=== PATIENT | female | born 2000 | race Caucasian/White ===

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

== ENCOUNTER 2023-04-15 14:31 | Emergency (ER) | payer MEDICAID, SELFPAY ==
[2023-04-15 14:32] VITALS: BP 114/57; PULSE 80; RESP 16; TEMP 36.6; O2SAT 100; BMI 21.9
--- NOTE | 2023-04-15 14:45 | ED.VIS.FEGU ---
HPI <ALIRIO Frazier - Last Filed: 04/15/23 15:34> HPI - Female History of Present Illness Chief Complaint: Narrative Narrative: Patient is a 22-year-old female that is a 3 para 3 who is concerned that she is for the fourth time. Patient states she currently does not have an TRADE SALES ASSISTANT. Patient denies any lower abdominal pain, patient denies any urinary frequency. Patient states that she is been having intermittent nausea in the morning, is also felt some breast soreness. She is here for evaluation. PFSH <ALIRIO Frazier - Last Filed: 04/15/23 15:34> [facility] Home Medications Prenatabs FA 1 tab PO DAILY nutrition 10/11/17 [History Last Taken Unknown] cephalexin 500 mg capsule 500 mg PO TID 7 days #21 caps 04/15/23 [Rx Last Taken Unknown] Allergy/AdvReac Type Severity Reaction Status Date / Time No Known Allergies Allergy Verified 04/15/23 14:33 Social History Smoking Status: Light Smoker (<10/day) ROS <ALIRIO Frazier - Last Filed: 04/15/23 15:34> ROS ED ROS Narrative Constitutional: Negative for fever, chills, weight loss, weakness Eyes: Negative for vision loss, vision change, double vision ENT: Negative for any sore throat, ear pain, congestion Cardiovascular: Negative for any chest pain, tightness, palpitations Respiratory: Negative for any cough, sputum production, hemoptysis, dyspnea, dyspnea on exertion, orthopnea Gastrointestinal: Negative for any abdominal pain, vomiting, diarrhea, constipation, blood in stool, blood in vomit. Positive for nausea : Negative for any urinary frequency, dysuria, retention, blood in urine Muscle skeletal: Negative for any myalgias, arthralgias, neck pain, back pain Neurological: Negative for any headache, syncope, paresthesias, dizziness Skin: Negative for any rashes, lumps, itching, abrasions, lacerations. Positive breast soreness Psychiatric: Negative for any depression, anxiety, stress, suicidal ideation, homicidal ideation Hematologic: Negative for any easy bruising, excessive bruising, easy bleeding Allergies: Negative for any eczema, hives, rash EXAM <ALIRIO Frazier - Last Filed: 04/15/23 15:34> Physical Exam Narrative Exam Narrative: Vital signs reviewed. HEET: Head normocephalic atraumatic, TMs clear bilaterally. Posterior pharynx is clear, moist mucous membranes. Nares clear bilaterally. Neck: Supple with no lymphadenopathy or tenderness. No signs of meningismus. Cardiac: Regular rate and rhythm no murmurs gallops or rubs, equal peripheral pulses bilaterally. Respiratory: Lungs clear to auscultation bilaterally. No chest tenderness. Abdomen: Soft, nontender, nondistended. No abdominal bruit or pulsatile masses. No hepatosplenomegaly Extremities: No peripheral edema, no signs of gross trauma or deformity. Active full range of motion of all extremities. Neuro: Cranial nerves II through XII intact, no focal neurological deficits. Skin: Clean dry and intact with no rash, purpura, petechiae, vesicles or pustules. Backs/flank: No CVA tenderness, no midline spinal tenderness, no deformity. Psych: Normal mood and affect. No SI, HI or acute psychosis. Const Vital Signs: 04/15/23 14:32 Temperature 97.9 F Temperature Source Temporal Pulse Rate 80 Respiratory Rate 16 Blood Pressure 114/57 L Blood Pressure Mean 76 Pulse Ox 100 Oxygen Delivery Method Room Air <Dr. Eliezer Cabrera DO - Last Filed: 04/15/23 16:21> Physical Exam Const Vital Signs: 04/15/23 14:32 Temperature 97.9 F Temperature Source Temporal Pulse Rate 80 Respiratory Rate 16 Blood Pressure 114/57 L Blood Pressure Mean 76 Pulse Ox 100 Oxygen Delivery Method Room Air [facility] <ALIRIO Frazier - Last Filed: 04/15/23 15:34> [facility] Lab Data Labs: Laboratory Results - last 24 hr 04/15/23 14:50 Urine Color Yellow Urine Clarity Clear Urine pH 6.5 Ur Specific Godwin 1.020 Urine Protein 15 H Urine Glucose (UA) Normal Urine Ketones Negative Urine Occult Blood 10 H Urine Nitrite Positive H Urine Bilirubin Negative Urine Urobilinogen 1 H Ur Leukocyte Esterase 25 H Urine RBC 0 SEEN Urine WBC 0-5 SEEN Ur Squamous Epith Cells 0-5 SEEN Urine Bacteria 2+ Urine Mucus 0 SEEN Urine Test Positive H Treatment and Re-Evaluation Narrative: Patient appears generally well, patient appears nontoxic, vital signs are stable. Presenting to the emergency department for concern of possible . Physical examination is unremarkable. Differential diagnosis includes positive , dysmenorrhea, ectopic . However patient has no pain, making ectopic low of my suspicion. Patient received a urine . Patient did asked to see how far along she was however I believe the patient can follow-up with her TRADE SALES ASSISTANT for this. Patient's urinalysis was positive for , patient also was positive for UTI, 2+ bacteria 25 leukocytes, positive nitrates. This was sent for culture, patient placed on Keflex 3 times a day for 7 days. I will give the patient's TRADE SALES ASSISTANT follow-up, she is instructed return for any worsening symptoms. At this time, patient has no abdominal pain, vaginal bleeding. Patient will follow-up outpatient. <Dr. Eliezer Cabrera, DO - Last Filed: 04/15/23 16:21> [facility] Narrative Medical decision making narrative: Patient appears generally well, patient appears nontoxic, vital signs are stable. Presenting to the emergency department for concern of possible . Physical examination is unremarkable. Differential diagnosis includes positive , dysmenorrhea, ectopic . However patient has no pain, making ectopic low of my suspicion. Patient received a urine . Patient did asked to see how far along she was however I believe the patient can follow-up with her TRADE SALES ASSISTANT for this. Patient's urinalysis was positive for , patient also was positive for UTI, 2+ bacteria 25 leukocytes, positive nitrates. This was sent for culture, patient placed on Keflex 3 times a day for 7 days. I will give the patient's TRADE SALES ASSISTANT follow-up, she is instructed return for any worsening symptoms. At this time, patient has no abdominal pain, vaginal bleeding. Patient will follow-up outpatient. Patient presenting with concerns for . She has not checked as an outpatient. No abdominal pain. No vaginal bleeding or loss of fluid. She does not have current OB follow-up. She has not had any care. hCG positive today. UTI consistent with possible early infection she will be treated for this with Keflex. She is given TRADE SALES ASSISTANT follow-up. Return precautions discussed. Lab Data Labs: Laboratory Results - last 24 hr 04/15/23 14:50 Urine Color Yellow Urine Clarity Clear Urine pH 6.5 Ur Specific Godwin 1.020 Urine Protein 15 H Urine Glucose (UA) Normal Urine Ketones Negative Urine Occult Blood 10 H Urine Nitrite Positive H Urine Bilirubin Negative Urine Urobilinogen 1 H Ur Leukocyte Esterase 25 H Urine RBC 0 SEEN Urine WBC 0-5 SEEN Ur Squamous Epith Cells 0-5 SEEN Urine Bacteria 2+ Urine Mucus 0 SEEN Urine Test Positive H Discharge Plan Triage Chief Complaint: ED Midlevel Provider: Miguel Angel Ann ED Provider: Eliezer Cabrera Dx/Rx/DC Orders Clinical Impression: , UTI (urinary tract infection) during Instructions: Urinary Tract Infections in Women, ED Prescriptions: New cephalexin 500 mg capsule 500 mg PO TID 7 Days Qty: 21 0RF No Action Prenatabs FA 1 tab PO DAILY Primary Care Provider: Care Physician,No Primary Referrals: Jessica Ko MD [Non-Staff] - Marisol Farley DO [Med Staff - Active Staff] - Activity Restrictions/Additional Instructions: Take the antibiotics until finished. You need to follow-up with TRADE SALES ASSISTANT Disposition Disposition: Home, Self Care Discharge Date/Time: 04/15/23 15:50
[2023-04-15 14:59] LABS: Mucous, Urine 0 SEEN /hpf (<or=2+); Red Blood Cells-Urine 0 SEEN /hpf (0-5)
[2023-04-15 15:16] LABS: Color, Urine Yellow (Yellow); Glucose, Dipstick Normal (Normal); Ketone-Dipstick Negative (Negative); Leukocyte Esterase-Dipstick 25 /ul (Negative); Nitrite-Dipstick Positive (Negative); Occult Blood-Urine 10 /ul (Negative); Protein-Dipstick 15 mg/dl (Negative); Urine Bilirubin Dipstick Negative (Negative); Urine Clarity Clear (Clear); Urine Urobilinogen 1 mg/dl (Normal); Urine pH 6.5 (5.0 - 8.0)
[2023-04-15 15:25] LABS: Bacteria 2+ /hpf (None Seen); Internal QC Validated? YES +Cl - CLEAR BKGD; Pregnancy, Urine Positive Negative; Record Kit Lot#,Urine Preg 718086; Squamous Epithelial Cells - UA 0-5 SEEN /hpf (5-10); White Blood Cells 0-5 SEEN /hpf (0-5)
[2023-04-15] MEDS: Cephalexin 250 MG Capsule 500 MG PO (15:45)
--- OUTSIDE RECORDS SUMMARY | 2023-04-15 17:41 | XMS RPT_ITS | CCD ---
Author Name Unknown Address [address] [place] [address] Organization [facility] Care Team Providers Care Manager Of Human Resources Name Role Phone Unavailable Primary Care Provider UnavailLUIS MANUEL Nye CNM Admitting Unavailable LUIS MANUEL DUNN CNM Attending Unavailable LUIS MANUEL DUNN CNM Primary Care Unavailable JOSE ROBERTO JOHNSON Attending Unavailable JOSE ROBERTO JOHNSON Primary Care Unavailable JOSE ROBERTO JOHNSON Admitting Unavailable MALGORZATA RAMIREZ Attending Unavailable MALGORZATA RAMIREZ Attending Unavailable GILBERTO RAMIREZ Admitting Unavailable JAKUB ARGUETA Attending Unavailable JAKUB AGRUETA Referring Unavailable JAKUB ARGUETA Admitting Unavailable GILBERTO RAMIREZ Referring Unavailable JAKUB ARGUETA Attending Unavailable JAKUB ARGUETA Attending Unavailable JAKUB ARGUETA Referring Unavailable GILBERTO RAMIREZ Attending Unavailable JAKUB ARGUETA Attending Unavailable PHYSICIAN, PATIENT UNSURE Primary Care Physician Unavailable Medications Current Medications Medication Drug Class(es) Dates Sig (Normalized) Sig (Original) azithromycin 250 mg oral tablet (1 source) Macrolide Antimicrobial Start: 11-08-2022 End: 11-13-2022 take 1 tablet by mouth once daily Zithromax Z-Juan J 250 mg oral tablet 1 dose, Oral, Daily, # 6 tab(s), 0 Refill(s) Start Date: 11/08/22 Stop Date: 11/13/22 Status: Ordered codeine phosphate 2 mg/ml / guaiFENesin 20 mg/ml oral solution (1 source) Opioid Agonist Start: 11-08-2022 End: 11-11-2022 take 1 dose by mouth every six hours as needed for cough codeine-guaifene sin 10 mg-100 mg/5 mL oral syrup Dose = 10 mL, Oral, q6h, PRN as needed for cough, X 3 day(s), # 120 mL, 0 Refill(s), Bronchitis Start Date: 11/08/22 Stop Date: 11/11/22 Status: Ordered Problems Active Problems Problem Classification Problem Date Documented Da te Episodic/Chronic Anxiety disorders (1 source) Anxiety state; Translations: [Anxiety state] Chronic Chronic obstructive pulmonary disease and bronchiectasis (1 source) Bronchitis; Translations: [Bronchitis, not specified as acute or chronic] Onset: 11-08-2022 Episodic Deficiency and other anemia (1 source) Other iron deficiency anemias; Translations: [Other iron deficiency anemias] Onset: 02-19-2021 Episodic Headache; including migraine (2 sources) Headache; including migraine; Translations: [Headache, unspecified] Onset: 09-10-2020 Mood disorders (1 source) Depressive disorder; Translations: [Depression, unspecified depression type] Chronic Nausea and vomiting (1 source) Nausea; Translations: [Nausea] Onset: 09-10-2020 Episodic Other complications of (1 source) Anemia complicating , unspecified trimester; Translations: [Anemia complicating , unspecified trimester] Onset: 02-19-2021 Chronic Other complications of (1 source) Other specified related conditions, second trimester; Translations: [Other specified related conditions, second trimester] Onset: 09-10-2020 Episodic Other lower respiratory disease (1 source) Dyspnea, unspecified; Translations: [Dyspnea, unspecified] Onset: 09-10-2020 Episodic Other and delivery including normal (1 source) Encounter for routine follow-up; Translations: [Encounter for routine follow-up] Onset: 02-04-2021 Episodic Residual codes; unclassified (1 source) 22 weeks gestation of ; Translations: [22 weeks gestation of ] Onset: 09-10-2020 Episodic Substance-related disorders (3 sources) Amphetamine abuse; 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] Onset: 09-10-2020 Chronic Substance-related disorders (1 source) Other stimulant use, unspecified, uncomplicated; Translations: [Other stimulant use, unspecified, uncomplicated] Onset: 09-10-2020 Episodic Unclassified (1 source) Thrombocytosis, unspecified; Translations: [Thrombocytosis, unspecified] Onset: 01-21-2021 Past or Other Problems Problem Classification Problem Date Documented Date Episodic/Chronic Early or threatened labor (2 sources) False labor before 37 completed weeks of gestation, third trimester; Translations: [False labor, unspecified] Onset: 12-14-2020 Episodic Other nervous system disorders (1 source) Other acute postprocedural pain; Translations: [Other acute postprocedural pain] Onset: 12-15-2020 Episodic Residual codes; unclassified (1 source) 35 weeks gestation of ; Translations: [35 weeks gestation of ] Onset: 12-14-2020 Episodic Results Test Name Value Interpretation Reference Range Facil ity Vital Signs Date Time Vital Sign Value Performing Clinician Faci lity 11-08-2022 17:06-0400 Blood Pressure Cuff Size LULY ADAMS MD [facility] 11-08-2022 17:06-0400 Blood Pressure Location LULY ADAMS MD [facility] 11-08-2022 17:06-0400 Blood Pressure Method LULY ADAMS MD [facility] 11-08-2022 17:06-0400 Body temperature 97.7 [degF] LULY ADAMS MD [facility] 11-08-2022 17:06-0400 Diastolic Blood Pressure Non-Invasive 55 1 LULY ADAMS MD [facility] 11-08-2022 17:06-0400 Heart rate 83 /min LULY ADAMS MD [facility] 11-08-2022 17:06-0400 Respiratory rate 18 /min LULY ADAMS MD [facility] 11-08-2022 17:06-0400 Systolic Blood Pressure Non-Invasive 94 1 LULY ADAMS MD [facility] 12-20-2018 12:40-0400 BMI (Body Mass Index) 20.02 kg/m2 [facility] [place] [place] 10-15-2019 12:40-0400 Body Temperature 98.01 [degF] [facility] [place] [facility] 12:40-0400 Body weight 51.26 kg Ovidio Bonds [facility] , [place] 12-20-2018 12:40-0400 BP Diastolic 79 mm[Hg] [facility] [place] [facility]-2018 12:40-0400 BP Systolic 112 mm[Hg] [facility] [place] 12-20-2018 12:40-0400 Height 160 cm [facility] [place] 12-20-2018 12:40-0400 Pulse (Heart Rate) 102 /min [facility] [place] 12-20-2018 12:40-0400 Pulse Oximetry 100 % [facility] [place] [facility]-20-2018 12:40-0400 Respiratory Rate 18 /[facility] En[facility] Encounter Date Encounter Type Care Provider Facility Start: 11-08-2022 End: 11-08-2022 Emergency department patient visit LULY ADAMS MD [facility] Start: 02-19-2021 End: 02-19-2021 ambulatory [facility] Start: 02-06-2021 [facility] Start: 02-04-2021 ambulatory GILBERTO THOM[facility] Start: 02-04-2021 Encounter for gynecological examination (general) (routine) without abnormal findings GILBERTO [facility] Start: 02-04-2021 End: 02-04-2021 ambulatory GILBERTO GUZMAN [facility] Start: 01-23-2021 ambulatory [facility] Start: 01-21-2021 End: 01-21-2021 ambulatory [facility] Start: 12-15-2020 End: 12-17-2020 Evaluation and management of inpatient [facility] Start: 12-14-2020 End: 12-15-2020 Emergency department patient visit MALGORZATA RAMIREZ [facility] Start: 12-12-2020 End: 12-12-2020 Emergency department patient visit MALGORZATA RAMIREZ [facility] Start: 09-17-2020 End: 09-17-2020 ambulatory LUIS MANUEL [facility] Start: 09-10-2020 End: 09-10-2020 Emergency department patient visit JOSE ROBERTO JOHNSON [facility] Start: 12-20-2018 End: 12-20-2018 Emergency department patient visit Ovidio Bonds Work Phone: [facility] Emergency Dept Procedures Date Procedure Procedure Detail Performing Clinician Start: 12-15-2020 Antibody screen MALGORZATA Get TROTTERARABELLA Plan of Treatment Date Care Activity Detail Author Start: 11-06-2018 Influenza vaccination Flu vaccine (# 1) [place], [place] End: 12-20-2018 Pulse Oximetry Spot Check Pulse Oximetry Spot Check Respiratory Care STAT Once for 1 Occurrences starting 12/20/2018 until 12/20/2018 [place], [place] Payers Date Payer Category Payer Unknown [id number] 1999 Unknown [id number] Private Health Insurance [id number] Private Health Insurance [id number] Unknown [id number] Social History Date Type Detail Facility Start: 12-20-2018 [facility] [place], [place] History of tobacco use Cigarette Smoker M [place], [place] Start: 12-20-2018 Cigarettes smoked current (pack per day) - Reported [place], [place] Start: 12-20-2018 Alcohol intake Not Currently [facility] [place], [place] Sex Assigned At Not on file [place], [place] Tobacco smoking status No Smokin g Status Entered [facility] Sex Assigned At Female [facility] Hospital Discharge instructions 11-08-2022 Note Date & Type Note Facility 11-08-2022 Hospital Discharg e instructions Patient Education 11/08/2022 17:39:47 Bronchitis, Antibiotic Treatment (Adult) Bronchitis, Antibiotic Treatment (Adult) Bronchitis is an infection of the air passages (bronchial tubes) in your lungs. It often occurs when you have a cold. This illness is contagious during the first few days and is spread through the air by coughing and sneezing, or by direct contact (touching the sick person and then touching your own eyes, nose, or mouth). Symptoms of bronchitis include cough with mucus (phlegm) and low-grade fever. Bronchitis usually lasts 7 to 14 days. Mild cases can be treated with simple home remedies. More severe infection is treated with an antibiotic. Home care Follow these guidelines when caring for yourself at home: If your symptoms are severe, rest at home for the first 2 to 3 days. When you go back to your usual activities, don't let yourself get too tired. Don't smoke. Also stay away from secondhand smoke. You may use yktl-pmw-gdieknp medicines to control fever or pain, unless another medicine was prescribed. If you have chronic liver or kidney disease or have ever had a stomach ulcer or gastrointestinal bleeding, talk with your healthcare provider before using these medicines. Also talk to your provider if you are taking medicine to prevent blood clots. Aspirin should never be given to anyone younger than 18 who is ill with a viral infection or fever. It may cause severe liver or brain damage. Your appetite may be low, so a light diet is fine. Stay well hydrated by drinking 6 to 8 glasses of fluids per day. This includes water, soft drinks, sports drinks, juices, tea, or soup. Extra fluids will help loosen mucus in your nose and lungs. Zzoq-syd-henwpia cough, cold, and sore-throat medicines will not shorten the length of the illness, but they may be helpful to reduce your symptoms. Don't use decongestants if you have high blood pressure. Finish all antibiotic medicine. Do this even if you are feeling better after only a few days. Follow-up care Follow up with your healthcare provider, or as advised. If you had an X-ray or ECG (electrocardiogram), a specialist will review it. You will be told of any new test results that may affect your care. If you are age 65 or older, if you smoke, or if you have a chronic lung disease or condition that affects your immune system, ask your healthcare provider about getting a pneumococcal vaccine and a yearly flu shot (influenza vaccine). When to seek medical advice Call your healthcare provider right away if any of these occur: Fever of 100.4 F (38 C) or higher, or as directed by your healthcare provider Coughing up more sputum Weakness, drowsiness, headache, facial pain, ear pain, or a stiff neck Call 911 Call 911 if any of these occur. Coughing up blood Weakness, drowsiness, headache, or stiff neck that get worse Trouble breathing, wheezing, or pain with breathing [phone] [employer]. [address] [place] [address], [place] [address]. All rights reserved. This information is not intended as a substitute for professional medical care. Always follow your healthcare professional's instructions. Follow Up Care 11/08/2022 16:46:36 With:PHYSICIAN, PATIENT UNSURE Address: When:3-5 days [facility] Emergency department Discharge summary 11-08-2022 Note Date & Type Note Facility 11-08-2022 Emergency department Discharge summary Discharge Instructions Thank you for allowing [facility] to assist you with your healthcare needs. The following is important discharge information regarding your hospital visit. Diagnosis from Today's Visit Bronchitis What to Do Next Instructions from Your Care Team No qualifying data available. Post Acute Orders No qualifying data available. You Need to Schedule the Following Appointments Follow Up with PHYSICIAN, PATIENT UNSURE When Within 3-5 days Where: Allergies NKA Medications Please ask your primary doctor or pharmacist before taking any other medication not listed, including over the counter drugs, herbal medications, vitamins and or supplements as they may interact with your home medications. What How Much When Why Instructions Last Dose New azithromycin (Zithromax Z-Juan J 250 mg oral tablet) 1 dose by mouth Every day Duration: 5 Days Printed Prescription New codeine-guaifenesin (codeine-guaifenesin 10 mg-100 mg/ 5 mL oral syrup) 10 Milliliter by mouth Every 6 hours as needed for as needed for cough Bronchitis Duration: 3 Days Printed Prescription Please take this list to your next doctor s visit. Bring all medications you take, including over the counter medications, herbals and other supplements with you to your doctor s visit. Patients and families are reminded to discard old lists and to update any records with all medication providers or retail pharmacies. Education Materials Bronchitis, Antibiotic Treatment (Adult) Bronchitis is an infection of the air passages (bronchial tubes) in your lungs. It often occurs when you have a cold. This illness is contagious during the first few days and is spread through the air by coughing and sneezing, or by direct contact (touching the sick person and then touching your own eyes, nose, or mouth). Symptoms of bronchitis include cough with mucus (phlegm) and low-grade fever. Bronchitis usually lasts 7 to 14 days. Mild cases can be treated with simple home remedies. More severe infection is treated with an antibiotic. Home care Follow these guidelines when caring for yourself at home: If your symptoms are severe, rest at home for the first 2 to 3 days. When you go back to your usual activities, don't let yourself get too tired. Don't smoke. Also stay away from secondhand smoke. You may use bfra-kgw-hxzvrzf medicines to control fever or pain, unless another medicine was prescribed. If you have chronic liver or kidney disease or have ever had a stomach ulcer or gastrointestinal bleeding, talk with your healthcare provider before using these medicines. Also talk to your provider if you are taking medicine to prevent blood clots. Aspirin should never be given to anyone younger than 18 who is ill with a viral infection or fever. It may cause severe liver or brain damage. Your appetite may be low, so a light diet is fine. Stay well hydrated by drinking 6 to 8 glasses of fluids per day. This includes water, soft drinks, sports drinks, juices, tea, or soup. Extra fluids will help loosen mucus in your nose and lungs. Lqva-snr-qtahxvq cough, cold, and sore-throat medicines will not shorten the length of the illness, but they may be helpful to reduce your symptoms. Don't use decongestants if you have high blood pressure. Finish all antibiotic medicine. Do this even if you are feeling better after only a few days. Follow-up care Follow up with your healthcare provider, or as advised. If you had an X-ray or ECG (electrocardiogram), a specialist will review it. You will be told of any new test results that may affect your care. If you are age 65 or older, if you smoke, or if you have a chronic lung disease or condition that affects your immune system, ask your healthcare provider about getting a pneumococcal vaccine and a yearly flu shot (influenza vaccine). When to seek medical advice Call your healthcare provider right away if any of these occur: Fever of 100.4 F (38 C) or higher, or as directed by your healthcare provider Coughing up more sputum Weakness, drowsiness, headache, facial pain, ear pain, or a stiff neck Call 911 Call 911 if any of these occur. Coughing up blood Weakness, drowsiness, headache, or stiff neck that get worse Trouble breathing, wheezing, or pain with breathing [phone] [employer]. [address] [place] [address]. All rights reserved. This information is not intended as a substitute for professional medical care. Always follow your healthcare professional's instructions. Additional Information VACCINATE! IT SAVES LIVES! Members of the community who have not yet received the COVID-19 vaccine and would like to receive it can visit one of [facility] vaccine clinics. There are many vaccine clinic locations within the [facility]. For locations and available times, please visit www.gettheot.coronavirus.[place].g ov/. It is important to note that some COVID mobile vaccine clinics are held outdoors and may be canceled in rainy or stormy conditions. To learn more about pediatric vaccinations (ages 5-11), we invite you to visit the [facility] webpage. [email or web address] To learn more about the COVID-19 vaccine, we invite you to visit the CDC website for a list of frequently asked questions. https://www.cdc.gov/coronavirus/2 019-ncov/vaccines/faq.html [facility] Patient Portal Access Instructions: Stay connected with your healthcare team and access your personal medical information anytime with the [facility] Patient Portal. If you would like a full copy of your medical records please contact the [facility] Medical Records Department Wednesday through Wednesday between 8a.m. and 4:30p.m. Please follow the directions below to access the portal: 1.Access the email account you provided upon registration to the [facility].2.Look for an invitation email from [facility].3.Open the email and access the invitation link: Accept Invitation to [email or web address].Fill in the required hernandez to create your account. Sign into [email or web address] with your username and password that you created in the above steps to stay up to date. You can then view a summary of results, a summary of your visits, and the ability to download your summaries to your computer or send the information securely to a physician. Remember that your healthcare information is confidential, so carefully consider who you will allow to register on the [email or web address] Patient Portal for access to your information. You can also access the [email or web address] Patient Portal on the [employer]. Simply click on Health Records under Health Data and then click on the [facility] logo. HOW TO SAFELY DISPOSE OF PRESCRIPTION MEDICATIONS Please use one of the following methods to safely dispose of your unused medications. 1.Use a drug disposal kit: the drug disposal pouch allows you to safely discard your old and unused drugs. Ask your nurse to give you one when you are discharged.2.Visit a local take-back location: Many local pharmacies and police departments have programs that collect old and unwanted prescription drugs. Call your local pharmacy or go to http://BrightSun.Vidacare/4O8Uw2p to find one close to you.3.Make use of household items: Use cat litter or old coffee grounds to dispose medications if other options are not available. Mix your drugs with these household products, seal them in an airtight container and throw it into the garbage. Call [facility]: [phone] to be sure your drugs can be disposed of in this way. Some medicines may require a different approach.4.Never flush your medications down the toilet. IF YOU HAVE BEEN PRESCRIBED AN OPIOIDS FOR PAIN If you have been prescribed an opioid (such as hydrocodone, oxycodone or morphine), it is critical to understand the possible side effects and risks of opioid pain medications. Even when taken as directed, opioids can have several side effects including: Tolerance, meaning you might need to take more of a medication for the same pain relief. Nausea, vomiting and/or constipation. Sleepiness, dizziness, dry mouth, confusion, depression or itching. Physical dependence, meaning you have withdrawal symptoms when a medication is stopped ? this can develop within a few days. KNOW YOUR RESPONSIBILITIES It is important to know exactly how much and how often to take the opioid pain medications you are prescribed. Never take opioids in higher amounts or more often than prescribed. Do not combine opioids with alcohol or other drugs that cause drowsiness, such as benzodiazepines, also known as benzos, including diazepam and alprazolam, muscle relaxants or sleep aids. Never sell or share prescription opioids. This is illegal. Store opioids in a secure place and out of reach of others (including children, family, friends and visitors). The last page(s) of this document has been signed and retained as a CHART COPY Signatures Patient Education Materials Bronchitis, Antibiotic Treatment (Adult) Medication Leaflets My discharge plan and instructions have been reviewed and explained to me and I,[place] understand my current condition and have read and understand these discharge instructions. I have received a written copy of the plan/instructions. If I have questions, I am aware that I should contact my doctor. Patient/Knock Out Hand Signature: Date/Time: Relationship to Patient: ____ Witness Name/Signature: Date/Time: [facility] Evaluation + Plan note Note Date & Type Note Facility Evaluation + Plan note No data available for this section [facility] Summary Purpose Family History No Family History Records FoundNo Family History Records FoundNo Family History Records FoundNo Family History Records FoundNo Family History Records FoundNo Family History Records Found No data available for this section Advance Directives No Advanced Directives Records FoundNo Advanced Directives Records FoundNo Advanced Directives Records FoundNo Advanced Directives Records FoundNo Advanced Directives Records FoundNo Advanced Directives Records Found Discharge Instructions * Attachments The following attachments cannot be sent through Care Everywhere. 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 DATE CREATED AUTHOR AUTHOR'S ORGANIZ ATION 04/23/2021 [facility] Reason for Visit (unrecogniz ed section and content) Patient Care team informatio n (unrecognized section and content) Care Team Personnel Name: PHYSICIAN, PATIENT UNSURE Member Role: Primary Care Physician Name: SONAM FRANKLIN DO Position: Resident Member Role: Resident Address: Address: [address] [place] [address] Emergency Resident [place], [place] [address] Name: LULY ADAMS MD Position: ED Physician Member Role: ED Physician Address: Address: [address] [place] [phone] [place] Name: Kunal Zavaleta STITCHER AROUND Position: ED STITCHER AROUND/CLS/MEDIC Member Role: ED STITCHER AROUND Care Team Related Persons Name: STANLEY NAVARRO FOR RECORDS PERTAINING TO PATIENTS WHO ARE OR HAVE BEEN ENROLLED IN A CHEMICAL DEPENDENCY/SUBSTANCEABUSE PROGRAM, SOME INFORMATION MAY BE OMITTED. This clinical summary was aggregated from multiple sources. Caution should be exercised in using it in the provision of clinical care. This summary normalizes information from multiple sources, and as a consequence, information in this document may materially change the coding, format and clinical context of patient data. In addition, data may be omitted in some cases. CLINICAL DECISIONS SHOULD BE BASED ON THE PRIMARY CLINICAL RECORDS. [facility] [employer] provides no warranty or guarantee of the accuracy or completeness of information in this document.
== END 2023-04-15 15:50 | disposition home or self-care (01) ==
PROVIDERS: Nurse Practitioner; Emergency Provider Student in an Organized Health Care Education/Training Program; Visit Provider Student in an Organized Health Care Education/Training Program
DX: O23.40 Unspecified infection of urinary tract in pregnancy, unspecified trimester (principal); F17.200 Nicotine dependence, unspecified, uncomplicated; O99.330 Smoking (tobacco) complicating pregnancy, unspecified trimester; Z3A.00 Weeks of gestation of pregnancy not specified
CPT/HCPCS: 81001; 81025; 87086; 87088; 87186; 99282

== ENCOUNTER 2023-07-05 12:09 | Emergency (ER) | payer MEDICAID, SELFPAY ==
[2023-07-05 12:09] VITALS: BP 117/78; PULSE 62; RESP 14; TEMP 36.6; O2SAT 100; BMI 23.2
--- NOTE | 2023-07-05 12:19 | EDS_ITS ---
HPI HPI - Female History of Present Illness Chief Complaint: Vag Bld, Preg Detail of Chief Complaint: and vaginal bleeding Informant: patient Narrative Narrative: Patient presents the emergency department with vaginal bleeding and stating that she is 19 weeks . Patient states that she has had some bleeding for about a week. At times it is light. She woke up this morning and there was some spots of blood on her bed. Denies passing any clots or tissue. Denies significant abdominal pain or cramping. Patient is G4, P3. Last menstrual period was February 22. She has been getting care but missed her last appointment. She sees [facility] VACUUM EVAPORATION OPERATOR's. [facility] Home Medications Prenatabs FA 1 tab PO DAILY nutrition 10/11/17 [History Last Taken Unknown] cephalexin 500 mg capsule 500 mg PO TID 7 days #21 caps 04/15/23 [Rx Last Taken Unknown] Allergy/AdvReac Type Severity Reaction Status Date / Time No Known Allergies Allergy Verified 07/05/23 12:10 Social History Smoking Status: Former smoker ROS ROS ED Review of Systems ROS Unobtainable: other Constitutional Constitutional ED: Reports lethargy; Denies chills, fever(s), sweats or weight loss Eyes Eyes: Denies blurry vision, change in vision or diplopia ENT ENT ED: Denies rhinorrhea or sore throat Cardiovascular Cardiovascular: Denies chest pain, orthopnea or racing heartbeat Respiratory/Chest Respiratory/Chest: Denies cough, dyspnea, dyspnea on exertion, orthopnea or sput um Gastrointestinal Gastrointestinal: Denies abdominal pain, diarrhea, nausea or vomiting Genitourinary Genitourinary ED: Reports other Details: Vaginal bleeding ; Denies dysuria, hematuria or urinary frequency Musculoskeletal Musculoskeletal: Denies arthralgias, back pain, myalgias or neck pain Integumentary Denies abscess, Abrasions or rash Neurologic Neurologic: Denies headache(s) or weakness Psychiatric Psychiatric: Denies anxiety, depression or suicidal thoughts Endocrine Endocrinology: Denies polydipsia, polyphagia or polyuria Hematologic/Lymphatic Hematologic/Lymphatic: Denies easy bleeding, easy bruising or lymphadenopathy Allergic/Immunologic Allergic/Immunologic ED: Denies mouth swelling, tongue swelling or urticaria EXAM Physical Exam Const Vital Signs: 07/05/23 12:09 07/05/23 14:09 Temperature 98 F Temperature Source Temporal Pulse Rate 62 100 Respiratory Rate 14 16 Blood Pressure 117/78 106/62 Blood Pressure Mean 91 76 Pulse Ox 100 97 Oxygen Delivery Method Room Air Room Air Positive well nourished and well developed General Appearance ED: well developed and NAD HEENT Reports TM's clear and moist mucous membranes normocephalic and atraumatic; Negative for trauma or tenderness Tympanic Membrane ED: Yes TM's clear Eyes PERRL and EOMs intact bilaterally General Eye ED: Negative for pale conjunctiva or scleral icterus Neck no lymphadenopathy, supple and no JVD General: Negative for tenderness Chest Wall inspection of chest normal and palpation of chest normal Chest: Negative for tenderness Resp normal respiratory effort and clear to auscultation bilaterally Effort and Inspection: Negative for respiratory distress or pain with movement Auscultation: Negative for rhonchi, wheezes or diminished lung sounds Cardio regular rate, regular rhythm, S1 normal heart sound, S2 normal heart sound and no murmurs Peripheral Pulses: pulses 2+ throughout GI normal to inspection, nondistended, normoactive bowel sounds, soft to palpation, non-tender, non-distended and no masses Back/Spine no CVA tenderness and no thoracic nor lumbar tenderness Extremity normal to inspection General Extremety ED: Negative for edema General Extremity: Negative for edema Neuro oriented x3, CN's II-XII intact bilaterally, no sensory deficits noted and gait normal Sensorium / Orientation: awake, alert, oriented to person, oriented to place and oriented to time Motor Exam: strength 5/5 throughout and strength abnormal Psych mental status grossly normal Skin no rashes or lesions noted and no wounds MDM MDM MDM Narrative Medical decision making narrative: Patient presents with vaginal bleeding in about 19 weeks . Denies significant pain currently. IV line established. CBC with differential obtained showed a white count 10.1 with hemoglobin 10.1 platelet count of 279. hCG quant was 6000 475. Urinalysis positive for nitrites as well as +2 bacteria but no WBCs and negative for leukocyte Estrace. I did send off a culture and she is asymptomatic therefore will not treat her. Blood type was B+. We did obtain a pelvic ultrasound that showed a single live intrauterine measuring 20 weeks and 3 days. There was a 2.1 cm linear hyperdensity near the cervix which could represent a focal collection of blood. Discussed case with VACUUM EVAPORATION OPERATOR on-call for the [facility] Dr. Sonali Jarrell who recommended patient follow-up with their office tomorrow at 2 PM. I made patient aware of this and patient in agreement. I feel she can be discharged to home. Currently she tells me she not having any bleeding Lab Data Attestation: I reviewed the patient's lab results. Labs: Laboratory Results - last 24 hr 07/05/23 07/05/23 12:30 12:40 WBC 10.1 RBC 3.45 L Hgb 10.1 L Hct 30.6 L MCV 88.7 MCH 29.3 MCHC 33.0 RDW Std Deviation 40.3 RDW Coeff of Nicki 12.4 Plt Count 279 MPV 9.2 Immature Gran % (Auto) 0.900 Neut % (Auto) 77.2 H Lymph % (Auto) 14.3 L [place] % (Auto) 4.9 Eos % (Auto) 2.1 Baso % (Auto) 0.6 Absolute Neuts (auto) 7.8 H Absolute Lymphs (auto) 1.44 Nucleated RBC % 0 HCG, Quant 6475 H Urine Color Straw Urine Clarity Clear Urine pH 7.0 Ur Specific [place] 1.005 Urine Protein Negative Urine Glucose (UA) Normal Urine Ketones Negative Urine Occult Blood 25 H Urine Nitrite Positive H Urine Bilirubin Negative Urine Urobilinogen Normal Ur Leukocyte Esterase Negative Urine RBC 0-5 SEEN Urine WBC 0-5 SEEN Ur Squamous Epith Cells 0 SEEN Urine Bacteria 2+ Urine Mucus 0 SEEN Blood Type B POSITIVE Radiography Diagnostic Testing: Clinical Impression(s) from Imaging Studies Obstetrics Ultrasound 07/05/23 12:19 IMPRESSION: Single live intrauterine gestation with a mean gestational age of 20 weeks and 3 days. 2.1 cm x 0.5 cm a hyperechoic linear density at the level of the cervical os. This may represent a focal collection of blood. Electronically Signed: Fletcher Tan MD at 14:38 EDT , Discharge Plan Triage Chief Complaint: Vag Bld, Preg ED Provider: Ramu Rosa Dx/Rx/DC Orders Clinical Impression: , threatened, Abnormal vaginal bleeding, Instructions: 2nd Trimester Adapt, ED Prescriptions: No Action Prenatabs FA 1 tab PO DAILY cephalexin 500 mg capsule 500 mg PO TID 7 Days Qty: 21 0RF Primary Care Provider: Care Physician,No Primary Referrals: Sonali Jarrell MD [Med Staff - Active Staff] - 07/06/23 2:00 pm Care Physician,No Primary [Primary Care Provider] - Activity Restrictions/Additional Instructions: Follow-up with Dr. Jarrell tomorrow at 2 PM in the office. Disposition Disposition: Home, Self Care
--- NOTE | 2023-07-05 12:19 | US_ITS ---
STUDY: SECOND AND THIRD TRIMESTER OBSTETRICAL ULTRASOUND REASON FOR EXAM: Female, 23 years old bleeding with -- Patient states she is getting care with the [facility] but does not know doctors name, due date, or LMP date. LMP: February 22 2023. TECHNIQUE: Transabdominal TECHNICAL QUALITY: Adequate. PRIOR ULTRASOUND: None. FINDINGS: There is a single intrauterine fetus. The fetus is in a breech presentation. There is demonstrated cardiac activity with a heart rate of 153 bpm. There is a normal amniotic fluid volume. The largest amniotic fluid pocket measures 3.1 cm x 3.5 cm. The amniotic fluid index (MILANA) is within normal limits. The placenta is posterior in location and is not low lying. There are Grade 0 placental changes. The cervix measures 8.2 cm in length. The adnexal regions are not visualized. In the region of the cervical os, there is a 2.1cm x 0.5 cm hyperechoic linear density. This may represent blood. BIOMETRY: BPD: 4.74 cm: 20 weeks, 2 days HC: 18.29 cm: 20 weeks, 5 days AC: 16.05 cm: 21 weeks, 1 days FL: 3.12 cm: 19 weeks, 5 days CI: 76.2% FL/BPD: 65.7% FL/HC: FL/AC: 19.4% HC/AC: 1.14 age by current US: 20 weeks, 3 days. MARTHA by current US: November 19, 2023. Estimated weight: 358 grams, +/- 54 grams, 100 %. Age by LMP: 19 weeks, 0 days. MARTHA by LMP: November 29, 2023. US/OB Limited With Biometrics IMPRESSION: Single live intrauterine gestation with a mean gestational age of 20 weeks and 3 days. 2.1 cm x 0.5 cm a hyperechoic linear density at the level of the cervical os. This may represent a focal collection of blood. Electronically Signed: Fletcher Tan MD at 14:38 EDT ,
[2023-07-05 12:42] LABS: Absolute Lymphocyte Count 1.44 X10^3/uL (0.83-4.51); Absolute Neutrophil Count 7.8 X10^3/uL (2.0-7.7); Basophil# 0.06 X10^3/uL; Basophil% 0.6 % (0-1); Eosinophil# 0.21 X10^3/uL; Eosinophils% 2.1 % (0-5); Hematocrit 30.6 % (37-47); Hemoglobin 10.1 g/dL (12.0-15.0); Lymphocyte # 1.44 X10^3/ul (0.83-4.51); Lymphocyte % 14.3 % (19-41); Mean Corpuscular Hgb 29.3 pg (27.0-32.0); Mean Corpuscular Volume 88.7 fL (81-99); Mean Platelet Vol. 9.2 fl (6.2-12.0); Monocyte# 0.49 X10^3/uL; Monocyte% 4.9 % (0-10); NRBC Flagged by Analyzer 0 % (0-5); Neutrophil # 7.78 X10^3/uL (2.7-7.7); Neutrophil % 77.2 % (47-70); Platelet Count 279 K/mm3 (150-450); RBC Distribution Width CV 12.4 % (11.6-14.6); RBC Distribution Width SD 40.3 fl (35.1-43.9); Red Blood Count 3.45 M/mm3 (4.2-5.4); White Blood Count 10.1 K/mm3 (4.4-11.0)
[2023-07-05 12:50] LABS: Mucous, Urine 0 SEEN /hpf (<or=2+); Squamous Epithelial Cells - UA 0 SEEN /hpf (5-10)
[2023-07-05 12:53] LABS: Color, Urine Straw (Yellow); Glucose, Dipstick Normal (Normal); Ketone-Dipstick Negative (Negative); Leukocyte Esterase-Dipstick Negative /ul (Negative); Nitrite-Dipstick Positive (Negative); Occult Blood-Urine 25 /ul (Negative); Protein-Dipstick Negative (Negative); Specific Gravity, Urine 1.005 (1.002-1.030); Urine Bilirubin Dipstick Negative (Negative); Urine Clarity Clear (Clear); Urine Urobilinogen Normal (Normal)
[2023-07-05 13:01] LABS: Bacteria 2+ /hpf (None Seen); Red Blood Cells-Urine 0-5 SEEN /hpf (0-5); White Blood Cells 0-5 SEEN /hpf (0-5)
[2023-07-05 13:13] LABS: hCG Titer Quant., Serum 6475 mIU/mL (1-3)
[2023-07-05 14:09] VITALS: BP 106/62; PULSE 100; RESP 16; O2SAT 97
[2023-07-05 15:25] VITALS: BP 112/68; PULSE 88; RESP 18; TEMP -8.8; TEMP 16; O2SAT 98
== END 2023-07-05 15:27 | disposition home or self-care (01) ==
PROVIDERS: Emergency Provider Emergency Medicine; Visit Provider Emergency Medicine
DX: O20.0 Threatened abortion (principal); Z3A.20 20 weeks gestation of pregnancy; Z87.891 Personal history of nicotine dependence
CPT/HCPCS: 76816; 81001; 84702; 85025; 86900; 86901; 87086; 87088; 87186; 99282; A4216

== ENCOUNTER 2023-09-19 07:05 | Inpatient (IN) | payer MEDICAID, SELFPAY ==
[2023-09-19] VITALS (18 sets, daily range): BP systolic 99–128; BP diastolic 55–81; PULSE 81–102; RESP 14–16; TEMP 35.6–36.7; O2SAT 91–100
--- NOTE | 2023-09-19 08:38 | PCM.HP.OB ---
HPI - General General Date of Admission: 09/19/23 Date of Service: 09/19/23 Chief Complaint: Severe Abdominal Pain HPI Narrative ALLISON COLORADO, is a 23 F G4, P3 who presents at approximately 28 weeks gestation who presents to the emergency room and then to labor and delivery with severe abdominal pain. Patient indicates that she had an ultrasound done which showed her to be due sometime in late November but has had no care otherwise. She indicates her prior 3 deliveries were early and per the record one of them was precipitous by Dr. Jarrell. The nurses report that the patient admits to recent use of methamphetamine and at presentation she is writhing in the bed demanding a . Examination shows presenting part to be breech. Membranes are ruptured. Patient reports some meconium stained fluid. Patient is a smoker but had no prior surgeries. heart tones upon presentation were reported to be approximately 115 but these were difficult to assess because the patient was writhing in pain. PFSH PFSH Home Medications ?Medication ?Instructions ?Recorded ?Last Taken ?Type Prenatabs FA 1 tab PO DAILY nutrition 10/11/17 Unknown History nitrofurantoin 100 mg PO Q12 #10 CAPSULES 07/09/23 Unknown Rx monohydrate/macrocrystals 100 mg capsule Allergy/AdvReac Type Severity Reaction Status Date / Time No Known Allergies Allergy Verified 07/05/23 12:10 Social History Smoking Status: Former smoker History Elective abortions Hx Para 1 Spontaneous abortions Hx # Term Pregnancies Ectopic pregnancies Hx # Pregnancies Multiple births # of living children Vital Signs Vital Signs Vital Signs: 09/19/23 07:06 09/19/23 07:06 09/19/23 07:10 Pulse Rate 102 H 97 Pulse Ox 91 09/19/23 07:10 09/19/23 07:15 09/19/23 07:15 Pulse Rate 97 Pulse Ox 100 100 09/19/23 07:20 09/19/23 07:20 Pulse Rate 89 Pulse Ox 100 Physical Exam Const oriented x3 and healthy appearing General Appearance: in distress HEENT Face and Sinus: normal facial exam Cardio Rate: tachycardic Neuro moves all extremities Labs Labs Labs: Blood Type B POSITIVE Antibody Screen NEGATIVE Hct 30.6 % (37-47) L Hgb 10.1 g/dL (12.0-15.0) L Obstetrics Ultrasound Rubella IgG Antibody 271.9 IU/mL Hep Bs Antigen Negative (Negative) Hepatitis C Ab (EIA) <0.1 s/co ratio (0.0-0.9) HIV 1&2 Antibody Non-Reactive (Nonreactive) Group B Strep DNA Negative (Negative) Rhogam given: No Assessment & Plan (1) Delivery by section for breech presentation: (2) distress affecting delivery of fourth : (3) Nuchal cord affecting delivery: COMMENT: Patient was immediately taken to the section suite due to heart tones reported to be 115 with intermittent decelerations. Plan was to proceed with if vaginal delivery did not immediately occur. An emergency primary low vertical section was performed and a nonviable male infant was delivered with Apgars of 0/0 from breech presentation. PLAN: Routine post care. Will consult social work program coordinator. Discussed surgery and baby's outcome with father the baby in the waiting room. We discussed that mom was doing well but the baby did not survive possibly due to a combination of prematurity and a catastrophic nuchal cord accident.
[2023-09-19] MEDS: Oxytocin 15 Units/NS 250ml 15 UNITS/250 ML IV.SOLN 83 UNITS IV (09:00)
--- NOTE | 2023-09-19 09:18 | OP.PCM_ITS ---
Details Operative Information Date of Procedure: 09/19/23 Pre-Operative Diagnosis: Intrauterine with Breech Presentation in Labor and Increasing Stress Post-Operative Diagnosis: Intrauterine with Breech Presentation in Labor and Increasing Stress; Catastrophic Cord Accident Indications for : Breech and Nonreassuring Status Classification: Stat Procedure Type: - (Primary Low Vertical Section) personal investment adviser #1: Barbra Turcios personal investment adviser #2: Armen Flores Type of Anesthesia: General Anesthesiologist: Yamilex Solano Antibiotic Given: Ancef 2 grams IV x1 Drain: Collins to straight drain Estimated Blood Loss: 750 cc Fluids Replaced: Crystalloid Findings Description of Procedure: Surgeon: Bradley Ni MD, FACOG Findings: Non-viable male with Apgars of 0/0 in complete breech presentation with minimal amniotic fluid and normal three-vessel placenta and cord around the neck x 1 extremely tight. No meconium staining of placenta noted. Indication: This is a 23 F G4, P3 who presents at approximately 28 weeks gestation to the emergency room and then quickly to labor and delivery with severe abdominal pain. Patient indicates that she had an ultrasound done in the ER several months ago which showed her to be due sometime in late November but has had no care otherwise. She indicates her prior 3 deliveries were early and per the record one of them was precipitous by Dr. Jarrell. The nurses report that the patient admits to recent use of methamphetamine and at presentation she is writhing in the bed demanding a . Examination shows presenting part to be breech. Membranes are ruptured. Patient reports some meconium stained fluid. Patient is a smoker but had no prior surgeries. heart tones upon presentation were reported to be approximately 115 but these were difficult to assess because the patient was writhing in pain. The patient was taken to the operating room with the intention of proceeding with section if vaginal delivery was not immediately eminent. We only briefly discussed the section itself with the patient who was demanding an immediate section. Procedure: Patient was taken to the operating room where she was prepped and draped in usual sterile fashion and a Collins catheter was placed. General anesthesia was given and the abdomen was entered through a Pfannenstiel incision and peritoneum was entered bluntly. After developing a bladder flap on the lower uterine segment a low vertical incision was made on the uterus and baby was delivered and immediately handed to nursery personnel who were present for the delivery. After resuscitation attempts Apgars subsequently assigned 0/0. The infant did not cry move any extremities on the operative field at any point. Uterus was exteriorized and placenta was delivered and noted to be 3 vessels and normal. Attempts were made to collect cord gases and venous gases were reportedly collected. The uterus was closed in 2 layers first with running locked 0 Vicryl suture followed by a second imbricating layer with 0 Vicryl suture. 0 Vicryl suture was then used in a horizontal mattress interrupted fashion to affect final hemostasis of the uterine incision line. Normal fallopian tubes and ovaries were visualized and the uterus was returned to the pelvis. Hemostasis was noted and rectus abdominis muscles were reapproximated in the midline with interrupted Number 0 Vicryl suture in a horizontal mattress fashion. Fascia was closed with running Number 1 PDS Strata fix suture. Subcutaneous tissue was irrigated with copious amounts of saline solution and then closed with running 3-0 Vicryl suture. Skin was closed with 4-0 monocryl suture in a running subcuticular fashion. Steri strips and a Mepilex dressing were placed across the incision. The patient tolerated the procedure well and was taken to the recovery room in satisfactory condition. Sponge, needle, and instrument counts were all reportedly correct. EBL was 750 cc. Ancef 2 gms IV was given prior to the procedure. Spicemen to Pathology: Placenta Complications: None Presentation: Positive for Complete Breech Amniotic Membrane Rupture Type: Spontaneous Placental Delivery Description: Manual Removal Placenta Disposition: Sent to Pathology Cord Vessel Description: 3 Vessels Cord Entanglement: Around neck x 1, tight Cord Gases: VBG Infant A Gender: Male (1 minute): 0 (5 minute): 0 Delayed Cord Clamping: No Complications Complications: None
[2023-09-19] MEDS: Ketorolac 30 MG/ML Syringe IV ×3 (09:50→21:49)
[2023-09-19] MEDS: Acetaminophen 500 MG Tablet 1000 MG PO ×3 (09:51→21:48)
[2023-09-19] MEDS: HYDROmorphone 1 MG/ML Syringe 0.5 MG IV (09:51)
[2023-09-19] MEDS: 0.9% Saline Lock 10 ML Syringe IV ×2 (09:52→21:48)
[2023-09-19] MEDS: HYDROmorphone 1 MG/ML Syringe IV (10:43)
[2023-09-19 11:30] LABS: Mucous, Urine 0 SEEN /hpf (<or=2+); Red Blood Cells-Urine 0 SEEN /hpf (0-5)
[2023-09-19 11:46] LABS: Color, Urine Yellow (Yellow); Glucose, Dipstick Normal (Normal); Ketone-Dipstick Negative (Negative); Leukocyte Esterase-Dipstick 25 /ul (Negative); Nitrite-Dipstick Negative (Negative); Occult Blood-Urine 25 /ul (Negative); Protein-Dipstick 30 mg/dl (Negative); Specific Gravity, Urine 1.015 (1.002-1.030); Urine Bilirubin Dipstick Negative (Negative); Urine Clarity Clear (Clear); Urine Urobilinogen Normal (Normal); Urine pH 6.5 (5.0 - 8.0)
[2023-09-19 11:48] LABS: Amphetamine Urine VISTA POSITIVE (<1000 ng/mL); Barbiturate Urine VISTA NEGATIVE (< 200 ng/mL); Benzodiazepine Urine VISTA NEGATIVE (< 200 ng/mL); Cocaine Urine VISTA NEGATIVE (< 300 ng/mL); Ecstacy Urine VISTA POSITIVE (< 500 ng/mL); Methadone Urine VISTA NEGATIVE (< 300 ng/mL); PCP Urine VISTA NEGATIVE (< 25 ng/mL); THC Urine VISTA POSITIVE (< 50 ng/mL); Vista UDS pH Range 6
[2023-09-19 11:49] LABS: Absolute Lymphocyte Count 0.71 X10^3/uL (0.83-4.51); Absolute Neutrophil Count 20.8 X10^3/uL (2.0-7.7); Basophil# 0.08 X10^3/uL; Basophil% 0.4 % (0-1); Eosinophil# 0.01 X10^3/uL; Hematocrit 27.8 % (37-47); Hemoglobin 8.7 g/dL (12.0-15.0); Lymphocyte # 0.71 X10^3/ul (0.83-4.51); Lymphocyte % 3.2 % (19-41); Mean Corp Hgb Conc 31.3 g/dL (32-36); Mean Corpuscular Hgb 25.1 pg (27.0-32.0); Mean Corpuscular Volume 80.1 fL (81-99); Mean Platelet Vol. 9.5 fl (6.2-12.0); Monocyte# 0.81 X10^3/uL; Monocyte% 3.6 % (0-10); NRBC Flagged by Analyzer 0 % (0-5); Neutrophil # 20.77 X10^3/uL (2.7-7.7); Neutrophil % 92.3 % (47-70); POSITIVE DIFFERENTIAL YES; Platelet Count 332 K/mm3 (150-450); RBC Distribution Width CV 14.1 % (11.6-14.6); RBC Distribution Width SD 40.9 fl (35.1-43.9); Red Blood Count 3.47 M/mm3 (4.2-5.4); White Blood Count 22.5 K/mm3 (4.4-11.0)
[2023-09-19 11:51] LABS: Differential Indicated SCAN CRITERIA MET
[2023-09-19] MEDS: Lactated Ringers 1,000 ML 100 ML IV ×2 (12:03→21:49)
[2023-09-19] MEDS: Senna/Docusate Sodium 1 Tablet PO (12:14)
[2023-09-19 12:18] LABS: Squamous Epithelial Cells - UA 0-5 SEEN /hpf (5-10); White Blood Cells 0-5 SEEN /hpf (0-5)
[2023-09-19 12:19] LABS: Bacteria 1+ /hpf (None Seen)
[2023-09-19 13:14] LABS: Differential Comment SCANNED
[2023-09-19 13:24] LABS: HIV - WCH Non-Reactive (Nonreactive); Hepatitis B Surface Antigen Non-Reactive (Nonreactive); Hepatitis C Antibody Non-Reactive (Nonreactive); Rubella IgG Reactive (Nonreactive); Syphilis Antibodies Non-reactive
[2023-09-19] MEDS: oxyCODONE 5 MG Tablet PO ×3 (14:06→22:09)
[2023-09-19] MEDS: Cefazolin 1 GM/50 ML BAG IV (15:44)
--- NOTE | 2023-09-20 | PLAC_PTH ---
PATIENT: ALLISON COLORADO LOC: WP U#:[id number] AGE/SX: 23/F ROOM: [facility] RE09/19/[address]: Dr. Bradley Ni MD : 2000 BED: 1 DIS: 09/21/2023 SPEC #: [id number] RECD: 09/20/23 10:51 STATUS: AUBRIE OMEGA #: [id number] ZENIA: 09/20/23 00:[address]: Bradley Ni DEPT: SURGICAL PATHOLOGY RECD BY: Thi Fowler ENTERED: 09/20/23 11:08 SP TYPE: PLACENTA OTHR DR: No Primary Care Phys Tissues: Placenta, NOS Procedures: Surgery Specimen Level V HEADER OPERATION: Primary section PRE-OP DIAGNOSIS: demise TISSUE SUBMITTED: Placenta MICROSCOPIC DIAGNOSIS Placenta: Placental disc - third trimester placenta (274 gm). - retroplacental blood clots. - pigment laden macrophages consistent with meconium, surface membranes. Membranes - ischemic changes with infarction and necrosis. Umbilical cord - three blood vessels and no pathologic diagnosis. SJ: 09/22/2023 MICROSCOPIC DESCRIPTION Slides are reviewed. GROSS DESCRIPTION SPECIMEN: PLACENTA / CLINICAL INFORMATION: demise A. Weight: ~2 kg B. Gestational Age: 28 weeks C. Sex: Male PLACENTAL WEIGHT (POST FIXATION): 274 gm PLACENTAL DIMENSIONS: 16.0 x 14.0 x 2.5 cm PLACENTAL SHAPE: Usual ovoid PLACENTAL WEIGHT FOR GESTATIONAL AGE: Within 10-99th percentile MEMBRANES - Present A. Insertion: Marginal B. Site of rupture from edge: a small portion of membranes are noted. Distance of rupture cannot be assessed due to incomplete nature of membranes. C. Color of membrane: Brown and dusky D. Abnormalities: None UMBILICAL CORD - Present A. Color: pink-red, dusky and macerated. B. Insertion: Paracentral C. Length: 6.0cm D. Number of vessels: Three E. Abnormalities: None PLACENTAL DISC - Present A. Color of surface: Marrufo-casanova B. surface abnormalities: None C. Maternal cotyledons: Markedly disrupted. Completeness of placenta cannot be assessed due to disrupted nature of placenta. D. Attached retro placental clot: Focally present. E. Cut surface: Dark red and spongy F. Lesions: None G. Separate clot: None SECTIONS SUBMITTED: (6 cassettes) 1. Membrane roll 2. Cord, maternal end 3. Cord, end 4. Placental disc, and maternal surfaces, area of maternal surface of placenta covered with blood clots 5. Placental disc, and maternal surfaces 6. Placental disc, and maternal surfaces MARTINA/ 09/21/2023 TC:5 CPT: 20162
[2023-09-20] MEDS: Cefazolin 1 GM/50 ML BAG IV (00:19)
[2023-09-20 00:21] VITALS: BP 108/58; PULSE 73; RESP 15; TEMP 36.1; O2SAT 98
--- NOTE | 2023-09-20 01:28 | NURSING ---
RN notes support person (Will) came to payroll secretary desk to discuss seeing ( demise). He states he would like to see his sons face. RN went to room to further discuss with Janak. This RN asked MOB if Will can visit . MOB did not respond at this time and appeared to be in and out of sleep. This RN then repeated the question but called the baby by his name, Bradley. Will then proceeded to become tearful and agitated. He quickly started packing his things. He then proceeded to tell MOB to go to [facility] and f*ck off. He also stated, If you're going to name him after Bradley, then he can be here with you. Will then left the unit in a hurry. RN notes Security was called and escorted him out of the hospital.
[2023-09-20] MEDS: oxyCODONE 5 MG Tablet PO ×4 (02:11→18:47)
[2023-09-20] MEDS: 0.9% Saline Lock 10 ML Syringe IV ×4 (02:19→21:07)
--- NOTE | 2023-09-20 02:45 | NURSING ---
Upon entry to room at 0215, pt tearful and asking for her support person, Will, to be let back in. RN states security will not let him back into hospital for safety reasons. RN informed pt that Will threaten to fight security. Pt continues to be tearful and states I need him. RN offered emotional support at this time.
[2023-09-20] MEDS: Acetaminophen 500 MG Tablet 1000 MG PO ×4 (04:01→22:01)
[2023-09-20] MEDS: Ketorolac 30 MG/ML Syringe IV (04:01)
[2023-09-20 04:04] VITALS: BP 100/58; PULSE 88; RESP 18; TEMP 36.3; O2SAT 100
--- NOTE | 2023-09-20 04:31 | NURSING ---
Security requested in room by pt. Pt states she wants to discuss why Will is not allowed back into the hospital. Security discussed with pt that for safety reasons and limited staffing of security, Will is unable to come back into the hospital until 0800. At 0800 security will have more staffing available. Pt is very tearful and states she needs him. RN offered emotional support at this time.
[2023-09-20 06:11] LABS: Hematocrit 20.9 % (37-47); Hemoglobin 6.6 g/dL (12.0-15.0); Mean Corp Hgb Conc 31.6 g/dL (32-36); Mean Corpuscular Hgb 25.6 pg (27.0-32.0); Mean Platelet Vol. 9.5 fl (6.2-12.0); Platelet Count 240 K/mm3 (150-450); RBC Distribution Width SD 41.1 fl (35.1-43.9); Red Blood Count 2.58 M/mm3 (4.2-5.4); White Blood Count 16.5 K/mm3 (4.4-11.0)
[2023-09-20 07:53] VITALS: BP 93/84; PULSE 86; RESP 18; TEMP 36.6; O2SAT 98
--- NOTE | 2023-09-20 08:07 | NURSING ---
RN called to nursing station at 0545 due to disruptive support person, Bradley Soto. Porcelain Enameler stated she was told to, Get the Hell of out the room. [place] states she was going into the room to assist pt with change of name of . Xiao Marin RN was then standing outside of pts room near open door ensuring pts safety while security was being called. Support Person then slammed the pts door. Security arrived on unit and escorted Bradley Soto off of unit.
--- NOTE | 2023-09-20 09:21 | NURSING ---
Pt deciced to see baby. Baby brought to room on cooling blanket. Placed in warmed bklanket per pt request while mom holds him. Dash, social services present in room and remained with pt. Pt requesting visitation from support person, Rony. Request taken to clinical supply chain program manager and security pending approval.
[2023-09-20] MEDS: Ibuprofen 600 MG Tablet PO ×3 (09:31→22:01)
[2023-09-20] MEDS: Senna/Docusate Sodium 1 Tablet PO (09:33)
--- NOTE | 2023-09-20 10:41 | PCM.PN.OB ---
Subjective Subjective Patient without complaints. Tolerating diet well. Positive flatus. Denies any orthostatic changes. Minimal vaginal bleeding reported. guidance services coordinator are with patient and possible father of baby. Baby is in the room and mother and father are looking at baby. 4 police officers are outside the room in the case that father has outburst and inappropriate yelling at staff like that which occurred last evening. Objective Data Objective Data Afebrile, vital signs stable. Hemoglobin 6.6 but no orthostatic changes. Hemoglobin prior to surgery was 8.7 now 6.6. Good urine output. Wound is clean dry and intact per patient and nursing. Vital Signs: Vital Signs Temp Pulse Resp BP Pulse Ox O2 Del Method 97.9 F 86 18 93/84 H 98 Room Air 09/20/23 07:53 09/20/23 07:53 09/20/23 07:53 09/20/23 07:53 09/20/23 07:53 09/20/23 07:53 Oxygen Delivery Method Room Air Intake & Output: Intake and Output for Last 24 Hours 09/18/23 09/19/23 09/20/23 23:59 23:59 23:59 Intake Total 1676.67 / 1676.67 501.67 / 501.67 Output Total 1300 / 1300 300 / 300 Balance 376.67 / 376.67 201.67 / 201.67 Lab / Micro Data 09/20/23 06:00 Labs: Laboratory Results - last 24 hr 09/19/23 11:00: WBC 22.5 H, RBC 3.47 L, Hgb 8.7 L, Hct 27.8 L, MCV 80.1 L, MCH 25.1 L, MCHC 31.3 L, RDW Std Deviation 40.9, RDW Coeff of Nicki 14.1, Plt Count 332, MPV 9.5, Immature Gran % (Auto) 0.500, Neut % (Auto) 92.3 H, Lymph % (Auto) 3.2 L, [place] % (Auto) 3.6, Eos % (Auto) 0.0, Baso % (Auto) 0.4, Absolute Neuts (auto) 20.8 H, Absolute Lymphs (auto) 0.71 L, Nucleated RBC % 0, Differential Comment SCANNED, Urine Color Yellow, Urine Clarity Clear, Urine pH 6.5, Ur Specific [place] 1.015, Urine Protein 30 H, Urine Glucose (UA) Normal, Urine Ketones Negative, Urine Occult Blood 25 H, Urine Nitrite Negative, Urine Bilirubin Negative, Urine Urobilinogen Normal, Ur Leukocyte Esterase 25 H, Urine RBC 0 SEEN, Urine WBC 0-5 SEEN, Ur Squamous Epith Cells 0-5 SEEN, Urine Bacteria 1+, Urine Mucus 0 SEEN, Urine Opiates Screen NEGATIVE, Urine Methadone Screen NEGATIVE, Ur Barbiturates Screen NEGATIVE, Ur Phencyclidine Scrn NEGATIVE, Ur Amphetamines Screen POSITIVE H, MDMA (Ecstasy) Screen POSITIVE H, U Benzodiazepines Scrn NEGATIVE, Urine Cocaine Screen NEGATIVE, U Cannabinoids Screen POSITIVE H, Ur Drug Screen Comment , Syphilis Total Ab Non-reactive, Hep Bs Antigen Non-Reactive, Hepatitis C Antibody Non-Reactive, HIV 1&2 Antibody Non-Reactive, Rubella IgG Antibody Reactive, Blood Type B POSITIVE, Antibody Screen NEGATIVE 09/20/23 06:00: WBC 16.5 H, RBC 2.58 L, Hgb 6.6 L, Hct 20.9 L, MCV 81.0, MCH 25.6 L, MCHC 31.6 L, RDW Std Deviation 41.1, RDW Coeff of Nicki 14.0, Plt Count 240, MPV 9.5 Micro: Microbiology 09/19/23 11:00 Genital vaginal Chlamydia trachomatis (PCR) - Final 09/19/23 11:00 Genital vaginal Neisseria gonorrhoeae (PCR) - Final Assessment & Plan (1) Nuchal cord affecting delivery: (2) distress affecting delivery of fourth : (3) Delivery by section for breech presentation: (4) Acute blood loss anemia (ABLA): COMMENT: Anemia at presentation likely due to itself and antepartum bleeding as patient reports almost constant bleeding during the . Current drop likely due to normal blood loss during section and IV hydration since surgery. No evidence of intra-abdominal bleeding as urine output is okay and no orthostatic symptoms are noted. I again discussed the likelihood of demise as being a nuchal cord catastrophe which occurred either immediately before surgery vs several hours to 1-2 days before (no way to know). Patient indicates she thought she felt movement several hours before she presented along with feeling like she needed to have a BM. PLAN: Doing well postoperative day #1 status post emergency primary section. Will monitor closely for orthostatic changes and repeat CBC tomorrow. Discussed low probability of needing a blood transfusion at this point. Appreciate social service consult and police presence.
--- NOTE | 2023-09-20 12:17 | CHAPLAIN ---
Type of Pastoral Visit _x__ Initial Visit ___ Follow-up Visit ___ On-call Visit ___ General Patient Visit ___ Spiritual Assessment ___ Family Conference ___ Bereavement ___ Rapid Response ___ Code Blue ___ Other (describe below) Pastoral Care Referral From ___ Patient ___ Family ___ Nurse ___ Physician _x__ Research Associate Molecular Biology ___ Nail Kegger _x__ Other (describe below) Sacrament/Intervention _x__ Active listening ___ Anointing ___ Latter-Day _x__ Bereavement ___ Communion _x__ Elizabeth exploration ___ _x__ Life review _x__ Prayer ___ Reconciliation ___ Sacrament of Sick _x__ Supportive presence ___ Wedding ___ Other (describe below) Pastoral Comments this medical education coordinator was contacted by security team to come to for the support of a 'father' of child that was stillborn last night; met with security team and also to learn about situation and then to be available when this 'father' was ready following his visit to the child and to the mother of the same; 'father' was very willing to sit down at length and talk about his feelings, his life of the past and current, and much personal dysfunction; this man is tearful at times; he is very verbal and talked fast and with random information about himself and his life; lots of compassionate listening given by this medical education coordinator; statements and questions given by this medical education coordinator to focus the 'father' on the matters of immediate importance; exploration of where he receives any emotional support or spiritual guidance; father does not have a stable system of support and often finds himself without the basics of life; pt states that he believes in a higher power and has seen evidence of the same in his life; 'father' states being relieved after the conversation with the doctor about the circumstances of the of child; he is welcoming of the emotional support and prayers; father left the hospital directly after this meeting
[2023-09-20 13:59] VITALS: BP 107/66; PULSE 80; RESP 17; TEMP 36.6
--- NOTE | 2023-09-20 15:50 | CASEMGMT ---
Labor and Delivery Social Work Intervention: Mother of baby (MOB- Janak) discussed during huddle. Sw informed that MIKAL presented to hospital at 27 weeks gestation in active labor. Emergency performed and baby still born. Social concerns at this time due to MOB indicating that there are two potential fathers: Bradley and Rony. Nursing over night had incidents and concerns with both individuals, who were eventually both escorted out of unit and told they were not to return. Concerns also that MIKAL had several substances in her system at time of delivery: THC, ecstasy and methamphetamine. 0845: Sw asked by bedside RN if sw would be able to support MOB while holding demised due to no other support being present. Sw agreed to this, met with MOB in room, introducing self and explaining sw role. Sw support person to MOB while she held infant. MOB appropriately emotional. MOB stated that she has chosen a home and wishes for baby to be cremated. MOB asked why Rony was not able to be present at bedside to be a support to her. Sw explained that Rony and the other male person identified as a potential father were both escorted off of property due to them being disrespectful and aggressive/ assaultive towards nursing staff and security staff. MOB asked if there was any way that Rony would be able to come to bedside to at least see the infant before he is taken to the morgue. Sw agreed to discuss this with management and security staff. Sw spoke to WP Computer Peripheral Equipment Operator, Irasema and security. Plan devised to allow Rony to come to unit to see baby and provide support to MOB for 15 minutes, with social work present in room during this time. 1000: Rony presented to . Sw and Security staff met with Rony before coming into unit. Sw and Security explained to Rony that we expect him to: be respectful towards MOB and WP staff while present, allow him 15 minutes to be at bedside to see / provide support to MOB and have sw present at that time, no swearing curing or raising his voice, and if any of these rules are broken he will be escorted off unit and will not be permitted to return. Rony stated that he understood and agreed. Sw accompanied Rony to room and observed visit with MOB and infant. Following their time Rony left unit and met with Spray Machine Tender. 1430: Sw returned to room to meet with MOB and complete psychosocial assessment, however she was asleep. Sw to meet with MOB on 7/16/24. Dash Devine, JG, CRIME LABORATORY ANALYST
--- NOTE | 2023-09-20 17:17 | NURSING ---
This IBCLC was told by film processing shift supervisor FELIX Markham that pt. may not be in a good spot today for IBCLC to round given changes to circumstance with support people. resource for grieving mothers given to primary dayshift FELIX Lee to share with pt, and to inform pt. that if she does have questions or concerns at all, that IBCLC will be available tomorrow morning to round and speak with pt. per her request.
--- NOTE | 2023-09-20 18:02 | NURSING ---
Baby released to [facility] at 1550.
[2023-09-20 21:00] VITALS: BP 105/52; PULSE 84; RESP 16; TEMP 37.2; O2SAT 98
[2023-09-21 02:00] VITALS: BP 96/61; PULSE 76; RESP 24; TEMP 36.6; O2SAT 98
[2023-09-21] MEDS: oxyCODONE 5 MG Tablet PO (02:03)
[2023-09-21] MEDS: Acetaminophen 500 MG Tablet 1000 MG PO ×2 (04:26→10:01)
[2023-09-21] MEDS: Ibuprofen 600 MG Tablet PO ×2 (04:26→10:01)
[2023-09-21 04:41] LABS: Hematocrit 21.2 % (37-47); Hemoglobin 6.6 g/dL (12.0-15.0); Mean Corp Hgb Conc 31.1 g/dL (32-36); Mean Corpuscular Volume 80.3 fL (81-99); Mean Platelet Vol. 9.8 fl (6.2-12.0); Platelet Count 238 K/mm3 (150-450); RBC Distribution Width CV 14.5 % (11.6-14.6); RBC Distribution Width SD 42.2 fl (35.1-43.9); Red Blood Count 2.64 M/mm3 (4.2-5.4); White Blood Count 13.6 K/mm3 (4.4-11.0)
--- NOTE | 2023-09-21 06:56 | DELATT_ITS ---
Delivery Attendance Service Date: 09/19/23 Asked to attend delivery by: OB (Bradley Ni) Reason for attendance: Prematurity Physical Exam Head: Normocephalic Lungs: Absent breath sounds Cardiovascular: - (Absent heart tones) Delivery Course LATE ENTRY Called to the delivery of a premature infant male of unknown gestation (suspected 28 to 30 weeks). Mother had little care and arrived in labor with delivery imminent. The presence of a HR was unclear and presentation was thought to be breech so mother was taken for GONZALEZ . At delivery, the infant was apneic, limp and cyanotic. His cord was clamped and he was brought to the warmer within 30 seconds. Due to his prematurity, gentle tactile stimulation was performed once he was placed in the polyethylene plastic bag. No heart beat was auscultated so PPV at 30% FiO2 was initiated for 30 sec onds. No chest rise was noted so MR SO was performed and bilateral chest rise was noted. There continued to be absent heart beat when auscultated so chest compressions were coordinated with PPV at 100% FiO2. After 2 minutes, there was still no heart beat so we prepared for intubation and placement of UVC. Baby was successfully intubated on the second attempt and he was given 0.1 mg/kg of epinephrine (estimated weight of 2 kg) through the ET tube while continuing UVC insertion. No heart beat was auscultated nor noted on the ECG monitor. UVC placement was unsuccessful so a second dose of epinephrine was given 3 minutes later with no change in clinical status. Chest compression were coordinated with ventilation with the ET tube throughout the time with pauses to auscultate for a heart beat. At 25 minutes, auscultation was done for one minute with no heart beat detected. Resuscitation efforts were discontinued at that time (8:03 am). Please see resuscitation record for exact times.
[2023-09-21 07:40] VITALS: BP 102/58; PULSE 89; RESP 16; TEMP 36.6; O2SAT 97
[2023-09-21] MEDS: Senna/Docusate Sodium 1 Tablet PO (10:00)
--- NOTE | 2023-09-21 10:34 | PCM.DC.SUM ---
Providers Date of Admission: 09/19/23 Date of Discharge: 09/21/23 Primary Care Physician: No Primary Care Phys Reason For Visit: S/P PRIMARY Diagnosis Discharge Diagnosis (1) Nuchal cord affecting delivery: Status: Acute Code(s): O69.81X0 - Labor and delivery complicated by cord around neck, without compression, not applicable or unspecified (2) distress affecting delivery of fourth : Status: Acute Code(s): O77.9 - Labor and delivery complicated by stress, unspecified (3) Delivery by section for breech presentation: Status: Acute Code(s): O32.1XX0 - Maternal care for breech presentation, not applicable or unspecified (4) Acute blood loss anemia (ABLA): Status: Acute Code(s): D62 - Acute posthemorrhagic anemia Plan: Doing well postoperative day #2 status post emergency primary section with demise at 31 weeks gestation approximately. This was likely due to a cord accident. Hemoglobin continues to be 6.6. Patient denies any orthostatic changes and hemoglobin unchanged versus yesterday. Pain is well-controlled with minimal narcotic use. Patient is ready to go home. Plan Will discharge to home with routine instructions. Patient instructed to minimize narcotic use. She was also instructed to use iron sulfate 3 and 25 mg 1-3 times a day for 1 to 2 months. Medications at Discharge Home Medications Prenatabs FA 1 tab PO DAILY nutrition 10/11/17 docusate sodium 100 mg tablet 100 mg PO BID PRN constipation #60 tabs 09/21/23 ferrous sulfate 325 mg (65 mg iron) tablet 325 mg PO TID #90 tabs 09/21/23 oxycodone 5 mg tablet 5 mg PO Q6H PRN PRN Pain Score 4-10 7 days #5 tabs 09/21/23 ABG / Lab / Microbiology Data 09/21/23 04:30 Laboratory: Laboratory Results - last 24 hr 09/21/23 04:30: WBC 13.6 H, RBC 2.64 L, Hgb 6.6 L, Hct 21.2 L, MCV 80.3 L, MCH 25.0 L, MCHC 31.1 L, RDW Std Deviation 42.2, RDW Coeff of Nicki 14.5, Plt Count 238, MPV 9.8 Microbiology: Microbiology 09/19/23 11:00 Genital vaginal Chlamydia trachomatis (PCR) - Final 09/19/23 11:00 Genital vaginal Neisseria gonorrhoeae (PCR) - Final D/C Instructions Discharge Diet: No restrictions Discharge Activity: May Drive (in1 to 2 weeks and not taking any narcotic pain medication), May Shower and May Take a Tub Bath May resume sexual activity in: 4-6 weeks Weight Bearing Status: - (Less than 15 pounds for 2 weeks) Call your doctor if your incision/area has: Sudden Increased Bleeding, Increased Pain/ Swelling, Increased Redness and Foul Smelling Discharge Call your doctor if you observe: Fever of 101 or Higher, Inability to urinate, Inability to have a bowel movement and Using more than 1 pad per hour Remove Dressing in: 4 days Please Follow Up With: Brittany Dennison DO When: 2 weeks and 6 weeks Meaningful Use Info Meaningful Use Meaningful Use Diagnoses (Choose all that apply): None applicable Ischemic Stroke Statin Dosing Therapy Reference: STATIN DOSE THERAPY REFERENCE: * Patients > 75 years receive moderate or high dose statin therapy. * Patients 75 years or YOUNGER should receive HIGH intensity statin dose unless contraindicated. You will be required to document reason for non-treatment if statin daily dose does not meet guidelines. HIGH DOSE STATIN THERAPY DAILY Atorvastatin > than or = to 40 mg Rosuvastatin > than or = to 20 mg Amlodipine + Atorvastatin > than or = to 2.5/40 mg Ezetimibe + Simvastatin 10/80 mg Simvastatin 80mg Discharge Plan Admission Admit Date/Time: 09/19/23 07:05 Primary Reason for Your Visit: Abdominal pain in Labor Attending Provider: Bradley Ni Primary Care Provider: Care Physician,No Primary Instructions Patient Instructions: After a Discharge Orders/Prescriptions Prescriptions: New oxycodone 5 mg Tablet 5 mg PO Q6H PRN MDD 4 PRN (Reason: Pain Score 4-10) 7 Days Qty: 5 0RF Rx Instructions: 1 by mouth every 6 hours as needed for severe pain ferrous sulfate 325 mg (65 mg iron) tablet 325 mg PO TID Qty: 90 2RF docusate sodium 100 mg tablet 100 mg PO BID PRN (Reason: constipation) Qty: 60 1RF Discontinued nitrofurantoin monohyd/m-cryst 100 mg capsule 100 mg PO Q12 Qty: 10 0RF No Action Prenatabs FA 1 tab PO DAILY Referrals / Follow Up: Care Physician,No Primary [Primary Care Provider] - Disposition Disposition (needs filled in before D/C Order can be placed): Home, Self Care
--- NOTE | 2023-09-21 10:40 | CASEMGMT ---
Social Work Assessment Labor and Delivery Unit Patient Address: [address] [place] [id number] Phone number: patient reports that she does not have a number at this time, however provided her mother's number ([phone]) Date of Referral: 09/19/23 Time of Referral:? 1020 Referred By: Dr. Ni Date of Intervention: ??09/20/23 and 09/21/23 Time of Intervention:? 1000 Reason for Referral:? meth use Sw completed chart review and acknowledges social work consult due to maternal methamphetamine use. Sw has met with mother of baby (HE Briceno) several times since her admission. Sw has introduced self and explained sw role throughout current admission. Sw has provided support, resources and completed psychosocial assessment. History obtained from: medical records, MOB Household composition: MIKAL reports that she is currently residing with her mother, Rosio, her younger brother and his girlfriend. MIKAL denies any issues or concerns with her current living situation. Patient's parent/guardian status:? ?MOB states that she is not certain at this time who the alleged father of baby is. MOB states that it is between two different men, Rony and Bradley. MIKAL states that at this time she believes who the father is, but she is still not feeling 100% about it. MIKAL reports that she was previously in a relationship with Rony, but she has tried to separate herself from him and from Bradley for the past couple of weeks. MIKAL reports that she has always consented to intercourse, denies being taken advantage of, and denies getting paid to have sex. MIKAL was educated on signs of human trafficking and denies being in a current trafficking situation. MIKAL denies domestic violence or intimate partner violence with any of her sexual partners. Medical History: ?MIKAL is 23 year old female who is 4, para 3- now 3 following demise/ still of at 28 weeks gestation. MIKAL reports that she did not receiving routine care during her . MIKAL states that her last menstrual period was in February, but states that she did not find out that she was until May. While completing chart review after completing assessment, this literary writer notes that MIKAL came into the ED in April (04/15/23) due to concern that she was , and at that time was confirmed, however gestation was not determined and patient was instructed to follow up with her OBGYN. Patient states that she was scheduled with the [facility] for appointments, however she was never able to make it to them, so then they did not agree to let her follow with them. - Patient presented to ED again on 07/05/23 due to bleeding, at that time she was checked and cleared and instructed to follow up with Dr. Jarrell at [facility]- who agreed to see patient, however patient did not follow up. - 09/19/23 presented to labor and delivery in pain, patient requesting and baby discovered to be in breech presentation. When baby was born he was non-viable presumably due to a nuchal cord incident in utero. Educational Status:? MIKAL reports to completing the 9th grade. She has not obtained her GED. MIKAL denies any issues with reading, learning or comprehension. Financial Status: MIKAL is currently unemployed. MIKAL states that she has medical insurance through [employer] and SNAP benefits. MIKAL is dependent upon her mother to provide for her basic needs. Transportation:?? MIKAL reports that she does not drive and does not have a vehicle. MIKAL states that when she needs to go somewhere she has assistance from her brother. Programs/Agencies Involved: ???MIKAL states that she went to rehab a couple of weeks ago at [facility]. MIKAL states that after that she had them send an assessment to [facility] where she just completed the intake process and has her first counseling appointment scheduled for tomorrow (09/21). MIKAL states that she is not receptive to NA/ AA at this time as she does not think that it will benefit her. Tanika educated MIKAL on other resources available to her locally, and provided her with information on [facility] IOP/ PHP program. MIKAL denied sw offer to get her scheduled with an intake, and stated that she wants to look at the information provided and then decide if it is something that she wishes to do. Children Services/Legal Issues:?MIKAL reports that she has two older children who she lost permanent custody of: Phyllis Yan (08/22) and Jassidavis Farrah (10/11/17), they are in permanent custody of her cousin. MIKAL states that her third child she has recently lost temporary custody of: Wilfredo (will be 3 in December), he is also placed with her cousin. MOB states that she has an open case with [facility], her protective services case worker is Colette. MIKAL states that she is not sure what the case plan has indicated for her. - Tanika called [facility] and spoke to hotline screener, Ramona. Tanika informed Ramona of MIKAL's most recent delivery and substance use. Ramona reports that the case was recently transferred to the ongoing department and she is not sure who the ongoing worker is that will be assigned to it. Ramona was going to pass along this new information to Colette. ?? Behavioral Health Issues: ??Mental Health History:?MIKAL states that she has been diagnosed with depression, denies anxiety or any personality diagnoses. MIKAL states that she does not believe that she has experienced any baby blues or depression in the past. ?? Substance Use History:?MIKAL reports to history of methamphetamine and THC use. MIKAL reports to this literary writer that she quit. Sw asked patient when this was, and she reports now. Patient is poor historian, and when pressed further regarding her history of use, frequency of use and substances, MIKAL states that these questions are irrelevant. MIKAL states that she recently went to rehab, a couple of weeks ago and relapsed after she was released. Following her relapse is when she got connected with [facility] for ongoing management of her substance use disorder and mental health assistance, potentially pharmacological support as well as she reports that she is open to medications to help manage her mental health symptoms. ? Family History:?not discussed at this time. ??? Drug Screens: ??MIKAL was positive at time of delivery of methamphetamine and THC. Family/Social Stressors:? MIKAL has extensive history of mental health, children services involvement resulting in the permanent and temporary loss of custody of her 2-3 older children. MIKAL has several sexual partners around the time of conception, stating that she is not 100% sure who the father of baby is. MIKAL has open case with [facility] at this time, the case has been transferred to [facility] and assigned worker is not known at this time. MIKAL was recently in rehab at [facility], however when released she relapsed. Following her relapse with methamphetamine she sought out substance use and mental health treatment with [facility]. MIKAL learned of in April, and did not receive any care. MIKAL presented to hospital on 09/19/23 requiring emergency under general anesthesia which unfortunately resulted in a still of her son, Raul. MIKAL has started the process of a and cremation with [facility]. Support Systems: MIKAL identifies that her mom, brother and her brothers girlfriend are her biggest supports at this time. MIKAL states that the men who are potential fathers are also trying to be supportive, however she is able to identify that they are not the kind of supports that she needs in her life right now. Depression/Shaken Baby/Safe Sleeping:? Sw educated MOB at length regarding signs and symptoms of baby blues and mood and anxiety disorders to be on the lookout for. Sw also talked to MOB about the different stages of Grief and what to expect during this period. MOB expressed understanding. Sw provided MOB with list of [facility] resources, [facility] transportation assistance, IOP/ PHP, and grief support information. ASSESSMENT:? MOB admitted following a still of her 4th child, unexpected and unplanned. Substance use throughout and no care. MIKAL admits to using methamphetamine and THC throughout , with an attempt at sobriety when she went to rehab a couple of weeks ago. MIKAL however relapsed when released. MIKAL states that she has an open case with [facility], but is not aware of what her plan indicates. MIKAL states that she wants to work her case plan so that she is able to regain custody of her three year old son, Wilfredo. MIKAL has been diagnosed with depression, and scored high on her PHQ-9. [place] completed and MIKAL scored a 5. Education and support provided. PLAN:? Handoff provided to [facility] hotline worker, Ramona. MIKAL is medically ready for discharge today. MIKAL states that she has a scheduled appointment tomorrow with [facility] for her first counseling session. Information provided for [facility] IOP/ PHP program and MOB was encouraged to get scheduled with them. Dash Devine, PLACEMENT COORDINATOR, HIDES INSPECTOR
[2023-09-22 11:12] LABS: Pathology Specimen OB SEE PATHOLOGY REPORT
== END 2023-09-21 11:15 | disposition home or self-care (01) | DRG 540 ==
LOC: WPOUT 07:05 → WP 07:05 → WPOUT 08:53 → WP 08:53
PROVIDERS: Admitting Provider Obstetrics & Gynecology; Visit Provider Obstetrics & Gynecology
DX: O76 Abnormality in fetal heart rate and rhythm complicating labor and delivery (principal); O60.14X0 Preterm labor third trimester with preterm delivery third trimester, not applicable or unspecified; D62 Acute posthemorrhagic anemia; O99.324 Drug use complicating childbirth; O36.4XX0 Maternal care for intrauterine death, not applicable or unspecified; F15.90 Other stimulant use, unspecified, uncomplicated; O32.1XX0 Maternal care for breech presentation, not applicable or unspecified; O90.81 Anemia of the puerperium; Z3A.28 28 weeks gestation of pregnancy; O69.1XX0 Labor and delivery complicated by cord around neck, with compression, not applicable or unspecified; Z3A.31 31 weeks gestation of pregnancy; Z37.1 Single stillbirth; O99.02 Anemia complicating childbirth
CPT/HCPCS: 80307; 81001; 85025; 85027; 86703; 86762; 86780; 86803; 86850; 86900; 86901; 87340; 87491; 87591; 88307; 99221; J7120; A4216; G0378; J2405